=== PATIENT | female | born 1985 | race Hispanic/Latino ===

== ENCOUNTER 2019-01-31 14:11 | Emergency (ER) | payer OTHER, SELFPAY ==
[2019-01-31 14:15] VITALS: BP 91/60; PULSE 82; RESP 16; TEMP 37; O2SAT 95; BMI 34.5
--- NOTE | 2019-01-31 14:15 | DI.RAD.S_ITS ---
PROCEDURE: XR ANKLE LT MIN 3V INDICATIONS: twisting injury TECHNIQUE: 3 views of the ankle were acquired. COMPARISON: None. FINDINGS: Bones: External radiopaque densities may represent clothing or other structures, which could potentially obscure a very subtle fracture. No displaced fractures or dislocations of the foot or hind foot are evident. No suspicious osseous lesions are identified. The ankle mortise appears to be well-maintained. Soft tissues: No obvious tibiotalar joint effusion. There may be medial ankle soft tissue swelling. IMPRESSION: Limited left ankle x-rays related to overlying material that may obscure a fracture. No displaced fracture is evident. If there is high clinical concern for an acute fracture, please consider repeating the x-ray without material or objects overlying the patient. Dictated by: Ke Tabor M.D. on 01/31/2019 at 13:54 Approved by: Ke Tabor M.D. on 01/31/2019 at 13:57
--- NOTE | 2019-01-31 14:34 | DI.RAD.S_ITS ---
PROCEDURE: XR CLAVICLE RT INDICATIONS: Clavicle px after all on R shoulder. TECHNIQUE: 2 views of the clavicle were acquired. COMPARISON: None. FINDINGS: Bones: No fractures or dislocations. No suspicious bony lesions. Mild to moderate degenerative changes of the right acromioclavicular joint are present. Soft tissues: No suspicious soft tissue calcifications. IMPRESSION: No clavicle fractures. Dictated by: Ke Tabor M.D. on 01/31/2019 at 14:23 Approved by: Ke Tabor M.D. on 01/31/2019 at 14:24
--- NOTE | 2019-01-31 14:36 | ED.LOWEXIN ---
HPI - Extremity Injury (Lower) <MODESTO Kirkland - Last Filed: 01/31/19 15:46> General Chief Complaint: Extremity Injury, Lower Stated Complaint: Left ankle pain Time Seen by Provider: 01/31/19 14:12 Source: patient and family Mode of arrival: wheelchair Limitations: no limitations History of Present Illness HPI Narrative: 33-year-old healthy female presents emergency department today after taking a fall while playing softball. [place] [employer] [place] when her left ankle was inverted and she fell on her right shoulder. Patient states she remembers falling and then remembers waking up in pain, she is unsure if she passed out. Witnesses stated that she fell and stared at the lenin for 1-2 seconds before she started crying. Patient complains of 10/10 aching pain to her left ankle that is worse with movement. Also complains of a 3 /10 right-sided dull aching headache. Additionally complains of an 8/10 sharp pain to right clavicle area that is worse with palpation and elevation of right arm. Patient denies vision changes, neck pain, nausea, vomiting, chest pain, shortness of breath, patient was unable to walk after incident due to ankle pain. Patient denies any significant orthopedic you for entrusting me with your care today. As discussed, injuries to her left leg, other than partial tear to left quad last year. Related Data Home Medications Medication Instructions Recorded Confirmed Vitamins (PRENAVITE) 1 tab PO QDAY #0 07/21/16 metformin [Glucophage XR] 500 mg PO QDAY #0 07/21/16 omega 6-ewh-xfw-fish oil [Fish Oil] 1,000 mg PO Q DAY #0 12/05/16 Previous Rx's Medication Instructions Recorded medroxyprogesterone 10 mg PO QDAY 10 Days #0 tab 11/11/16 Allergies Allergy/AdvReac Type Severity Reaction Status Date / Time No Known Drug Allergies Allergy Verified 01/31/19 14:37 Review of Systems <MODESTO Kirkland - Last Filed: 01/31/19 15:46> Review of Systems REVIEW OF SYSTEMS: GENERAL: Denies fever or chills. HENT: See HPI, complaints of trauma, no hearing loss or vision change. EYES: No loss of vision, double vision, eye pain, or irritation. CARDIOVASCULAR: No chest pain, syncope uncertain. See HPI. RESPIRATORY: No shortness of breath or cough. GASTROINTESTINAL: No nausea, vomiting, diarrhea, or constipation. GENITOURINARY: No flank pain or dysuria. MUSCULOSKELETAL: Complains of left ankle pain and right shoulder pain, see HPI. INTEGUMENTARY: No rash, lesions, or pruritus. NEURO: No numbness, tingling, memory loss, or confusion. PSYCH: No behavior or mood changes. PFSH <MODESTO Kirkland - Last Filed: 01/31/19 15:46> Medical History No significant medical problems (Acute) Social History (Updated 01/31/19 @ 14:50 by MODESTO Kirkland) Smoking Status: Never smoker Social History Smoking Status: Never smoker Exam <MODESTO Kirkland - Last Filed: 01/31/19 15:46> Initial Vital Signs Initial Vital Signs: Vital Signs Temperature 98.6 F 01/31/19 14:15 Pulse Rate 82 01/31/19 14:15 Respiratory Rate 16 01/31/19 14:15 Blood Pressure 91/60 01/31/19 14:15 Pulse Oximetry 95 01/31/19 14:15 PHYSICAL EXAMINATION: GENERAL: Well groomed, alert, and cooperative. Answers questions promptly and appropriately. Vital signs noted. Patient arrives in [place] from EMS. HENT: Normocephalic, atraumatic, no bruising or lacerations on the face or scalp. Oral mucosa is pink and moist. EYES: PERRLA, EOMIs, conjunctiva pink, sclera white, no periorbital swelling. NECK: Full range of motion. No cervical spinal tenderness. Slight tenderness to right paraspinal muscle. CARDIOVASCULAR: S1 and S2 sounds normal. Regular rate and rhythm, no murmurs, clicks, or bruits. No pedal edema. RESPIRATORY: Normal respiratory rate, trachea midline, airway patent. No stridor, nasal flaring or accessory muscle use. Lungs are clear in all he without wheeze, rhonchi, or crackles. MUSCULOSKELETAL: Patient arrived ambulatory, did not ambulate due to pain. Equal tone and mass bilaterally. EXTREMITIES: Swelling and slight bruising to left ankle more significant around lateral malleolus, significant tenderness to medial malleolus. Limited range of motion to left ankle due to pain. Full range of motion to left foot phalanges, no tenderness with palpation of left metatarsals, no tenderness to palpation of proximal tibia or fibula or knee joint, pedal pulses intact bilaterally, 2+. No lacerations noted. Significant tenderness to right clavicle with palpation, clavicle tenderness with extension of right arm and rotation of neck to the right, radial pulse was intact bilaterally, 2+. Shooter'S Helper strength equal bilaterally. CMS intact. SKIN: Warm, dry, soft, appropriate color for ethnicity. No lesions, rashes, or wounds. NEURO: Alert and Oriented X 3. Good coordination. No ataxia, or sensory deficits, or cognitive issues. PSYCH: Appropriate affect and mood. <Susan Andrade DO - Last Filed: 02/03/19 07:24> Initial Vital Signs Initial Vital Signs: Vital Signs Temperature 98.6 F 01/31/19 14:15 Pulse Rate 82 01/31/19 14:15 Respiratory Rate 16 01/31/19 14:15 Blood Pressure 91/60 01/31/19 14:15 Pulse Oximetry 95 01/31/19 14:15 Course <MODESTO Kirkland - Last Filed: 01/31/19 15:46> Orders Ordered: Discontinued Medications Ibuprofen (Advil) 800 mg PO NOW ONE Stop: 01/31/19 14:37 Last Admin: 01/31/19 14:46 Dose: 800 mg Reevaluation(s) Reevaluation #1: Patient re-evaluated after pain medication, states she is feeling a lot better. Reevaluation #2: Patient was able to ambulate ankle without the use of crutches. Consultations Consultation #1: Patient staffed with Dr. Andrade. Vital Signs - 8 hr 01/31/19 14:15 Temperature 98.6 F Pulse Rate 82 Respiratory Rate 16 Blood Pressure 91/60 Pulse Oximetry 95 <Susan Andrade DO - Last Filed: 02/03/19 07:24> Orders Ordered: Discontinued Medications Ibuprofen (Advil) 800 mg PO NOW ONE Stop: 01/31/19 14:37 Last Admin: 01/31/19 14:46 Dose: 800 mg Vital Signs - 8 hr 01/31/19 14:15 Temperature 98.6 F Pulse Rate 82 Respiratory Rate 16 Blood Pressure 91/60 Pulse Oximetry 95 MDM - Extremity Injury (Lower) <MODESTO Kirkland - Last Filed: 01/31/19 15:46> Medical Records Attestation: I reviewed the patient's medical records. Lab Data Attestation: I reviewed the patient's lab results. Imaging Data R Clavicle : Radiologist's impression: [address] [address] XRay Report Signed Patient: Lauren Oliveira GMR#: [id number] : 1985Acct:[id number] Age/Sex: 33 / FDate of Service: 01/31/19 Loc: ED Accession Number: [id number] Procedure: XR clavicle RT Ordering Provider: Lilian Hood PROCEDURE: XR CLAVICLE RT INDICATIONS: Clavicle px after all on R shoulder. TECHNIQUE: 2 views of the clavicle were acquired. COMPARISON: None. FINDINGS: Bones: No fractures or dislocations. No suspicious bony lesions. Mild to moderate degenerative changes of the right acromioclavicular joint are present. Soft tissues: No suspicious soft tissue calcifications. IMPRESSION: No clavicle fractures. Dictated by: Ke Tabor M.D. on 01/31/2019 at 14:23 Approved by: Ke Tabor M.D. on 01/31/2019 at 14:24 L Ankle: Radiologist's impression: [address] [address] XRay Report Signed Patient: Lauren Oliveira GMR#: [id number] : 1985Acct:[id number] Age/Sex: 33 / FDate of Service: 01/31/19 Loc: ED Accession Number: [id number] Procedure: XR ankle LT min 3V Ordering Provider: Lilian Hood PROCEDURE: XR ANKLE LT MIN 3V INDICATIONS: twisting injury TECHNIQUE: 3 views of the ankle were acquired. COMPARISON: None. FINDINGS: Bones: External radiopaque densities may represent clothing or other structures, which could potentially obscure a very subtle fracture. No displaced fractures or dislocations of the foot or hind foot are evident. No suspicious osseous lesions are identified. The ankle mortise appears to be well-maintained. Soft tissues: No obvious tibiotalar joint effusion. There may be medial ankle soft tissue swelling. IMPRESSION: Limited left ankle x-rays related to overlying material that may obscure a fracture. No displaced fracture is evident. If there is high clinical concern for an acute fracture, please consider repeating the x-ray without material or objects overlying the patient. Dictated by: Ke Tabor M.D. on 01/31/2019 at 13:54 Approved by: Ke Tabor M.D. on 01/31/2019 at 13:57 [facility] Narrative Medical decision making narrative: Low suspicion of fracture due to negative x-ray, and patient's ability to ambulate after pain medication was given. I do not suspect intracranial bleed or need for head CT as LOC unclear, patient denies vomiting, no signs of trauma to head, the patient remained awake and alert throughout the entire stay, and she does not have significant risk factors such as taking blood thinners. Although due to headache and mechanism of injury she may have a small concussion, a CT would not change the plan of care. Significant discussion was had with patient about signs of worsening concussion and when to return to the emergency department record. Discharge Plan Departure Patient Disposition: Home Clinical Impression: Ankle sprain Qualifiers: Encounter type: initial encounter Involved ligament of ankle: unspecified ligament Laterality: left Qualified Code(s): S93.402A - Sprain of unspecified ligament of left ankle, initial encounter Discharge Date/Time: 01/31/19 15:51 Interventions: ED Discharge Assessment Last Done: 01/31/19 15:51 Instructions: DI for Ankle Sprain, DI for Shoulder Sprain Activity Restrictions/Additional Instructions: Thank you for entrusting me with your care today. As discussed, you're x-rays are negative for any fracture. I suspect that your injuries are from sprains and strains that occurred during your fall. However, I advise that you follow up with your primary care provider in about a week for recheck if your symptoms have not improved. Wrap your ankle with an Devon wrap for the next 3 days, take 600 mg of ibuprofen every 6 hours around the clock for the next 3 days to help with inflammation and pain. Return to the emergency department if you experience syncope, chest pain, shortness of breath, uncontrolled vomiting, or fevers that do not decrease with Tylenol or ibuprofen. Prescriptions: No Action metformin [Glucophage XR] 500 MG tablet extended release 24 hr 500 mg PO QDAY Qty: 0 RF: 0 Vitamins (PRENAVITE) 1 tab PO QDAY Qty: 0 RF: 0 medroxyprogesterone 10 MG tablet 10 mg PO QDAY 10 Days Qty: 0 RF: 0 omega 0-wvs-lyk-fish oil [Fish Oil] 1,000 MG capsule 1,000 mg PO Q DAY Qty: 0 RF: 0 <Susan Andrade, - Last Filed: 02/03/19 07:24> Cosign ED Attending Cosignature Attestation: I was immediately available in the department for consultation. Documentation has been reviewed. I agree with assessment and plan.
--- NOTE | 2019-01-31 14:39 | ED_ITS ---
HPI - Extremity Injury (Lower) <MODESTO Kirkland - Last Filed: 01/31/19 15:46> General Chief Complaint: Extremity Injury, Lower Stated Complaint: Left ankle pain Time Seen by Provider: 01/31/19 14:12 Source: patient and family Mode of arrival: wheelchair Limitations: no limitations History of Present Illness HPI Narrative: 33-year-old healthy female presents emergency department today after taking a fall while playing softball. She was running [place] [employer] [place] when her left ankle was inverted and she fell on her right shoulder. Patient states she remembers falling and then remembers waking up in pain, she is unsure if she passed out. Witnesses stated that she fell and stared at the lenin for 1-2 seconds before she started crying. Patient complains of 10/10 aching pain to her left ankle that is worse with movement. Also complains of a 3 /10 right-sided dull aching headache. Additionally complains of an 8/10 sharp pain to right clavicle area that is worse with palpation and elevation of right arm. Patient denies vision changes, neck pain, nausea, vomiting, chest pain, shortness of breath, patient was unable to walk after incident due to ankle pain. Patient denies any significant orthopedic you for entrusting me with your care today. As discussed, injuries to her left leg, other than partial tear to left quad last year. Related Data Home Medications Medication Instructions Recorded Confirmed Vitamins (PRENAVITE) 1 tab PO QDAY #0 07/21/16 metformin [Glucophage XR] 500 mg PO QDAY #0 07/21/16 omega 8-gex-whj-fish oil [Fish Oil] 1,000 mg PO Q DAY #0 12/05/16 Previous Rx's Medication Instructions Recorded medroxyprogesterone 10 mg PO QDAY 10 Days #0 tab 11/11/16 Allergies Allergy/AdvReac Type Severity Reaction Status Date / Time No Known Drug Allergies Allergy Verified 01/31/19 14:37 Review of Systems <MODESTO Kirkland - Last Filed: 01/31/19 15:46> Review of Systems REVIEW OF SYSTEMS: GENERAL: Denies fever or chills. HENT: See HPI, complaints of trauma, no hearing loss or vision change. EYES: No loss of vision, double vision, eye pain, or irritation. CARDIOVASCULAR: No chest pain, syncope uncertain. See HPI. RESPIRATORY: No shortness of breath or cough. GASTROINTESTINAL: No nausea, vomiting, diarrhea, or constipation. GENITOURINARY: No flank pain or dysuria. MUSCULOSKELETAL: Complains of left ankle pain and right shoulder pain, see HPI. INTEGUMENTARY: No rash, lesions, or pruritus. NEURO: No numbness, tingling, memory loss, or confusion. PSYCH: No behavior or mood changes. PFSH <MODESTO Kirkland - Last Filed: 01/31/19 15:46> Medical History No significant medical problems (Acute) Social History (Updated 01/31/19 @ 14:50 by MODESTO Kirkland) Smoking Status: Never smoker Social History Smoking Status: Never smoker Exam <MODESTO Kirkland - Last Filed: 01/31/19 15:46> Initial Vital Signs Initial Vital Signs: Vital Signs Temperature 98.6 F 01/31/19 14:15 Pulse Rate 82 01/31/19 14:15 Respiratory Rate 16 01/31/19 14:15 Blood Pressure 91/60 01/31/19 14:15 Pulse Oximetry 95 01/31/19 14:15 PHYSICAL EXAMINATION: GENERAL: Well groomed, alert, and cooperative. Answers questions promptly and appropriately. Vital signs noted. Patient arrives in [place] from EMS. HENT: Normocephalic, atraumatic, no bruising or lacerations on the face or scalp. Oral mucosa is pink and moist. EYES: PERRLA, EOMIs, conjunctiva pink, sclera white, no periorbital swelling. NECK: Full range of motion. No cervical spinal tenderness. Slight tenderness to right paraspinal muscle. CARDIOVASCULAR: S1 and S2 sounds normal. Regular rate and rhythm, no murmurs, clicks, or bruits. No pedal edema. RESPIRATORY: Normal respiratory rate, trachea midline, airway patent. No stridor, nasal flaring or accessory muscle use. Lungs are clear in all he without wheeze, rhonchi, or crackles. MUSCULOSKELETAL: Patient arrived ambulatory, did not ambulate due to pain. Equal tone and mass bilaterally. EXTREMITIES: Swelling and slight bruising to left ankle more significant around lateral malleolus, significant tenderness to medial malleolus. Limited range of motion to left ankle due to pain. Full range of motion to left foot phalanges, no tenderness with palpation of left metatarsals, no tenderness to palpation of proximal tibia or fibula or knee joint, pedal pulses intact bilaterally, 2+. No lacerations noted. Significant tenderness to right clavicle with palpation, clavicle tenderness with extension of right arm and rotation of neck to the right, radial pulse was intact bilaterally, 2+. Supervisor Offset Plate Preparation strength equal bilaterally. CMS intact. SKIN: Warm, dry, soft, appropriate color for ethnicity. No lesions, rashes, or wounds. NEURO: Alert and Oriented X 3. Good coordination. No ataxia, or sensory deficits, or cognitive issues. PSYCH: Appropriate affect and mood. <Susan Andrade DO - Last Filed: 02/03/19 07:24> Initial Vital Signs Initial Vital Signs: Vital Signs Temperature 98.6 F 01/31/19 14:15 Pulse Rate 82 01/31/19 14:15 Respiratory Rate 16 01/31/19 14:15 Blood Pressure 91/60 01/31/19 14:15 Pulse Oximetry 95 01/31/19 14:15 Course <MODESTO Kirkland - Last Filed: 01/31/19 15:46> Orders Ordered: Discontinued Medications Ibuprofen (Advil) 800 mg PO NOW ONE Stop: 01/31/19 14:37 Last Admin: 01/31/19 14:46 Dose: 800 mg Reevaluation(s) Reevaluation #1: Patient re-evaluated after pain medication, states she is feeling a lot better. Reevaluation #2: Patient was able to ambulate ankle without the use of crutches. Consultations Consultation #1: Patient staffed with Dr. Andrade. Vital Signs - 8 hr 01/31/19 14:15 Temperature 98.6 F Pulse Rate 82 Respiratory Rate 16 Blood Pressure 91/60 Pulse Oximetry 95 <Susan Andrade DO - Last Filed: 02/03/19 07:24> Orders Ordered: Discontinued Medications Ibuprofen (Advil) 800 mg PO NOW ONE Stop: 01/31/19 14:37 Last Admin: 01/31/19 14:46 Dose: 800 mg Vital Signs - 8 hr 01/31/19 14:15 Temperature 98.6 F Pulse Rate 82 Respiratory Rate 16 Blood Pressure 91/60 Pulse Oximetry 95 MDM - Extremity Injury (Lower) <MODESTO Kirkland - Last Filed: 01/31/19 15:46> Medical Records Attestation: I reviewed the patient's medical records. Lab Data Attestation: I reviewed the patient's lab results. Imaging Data R Clavicle : Radiologist's impression: [address] [address] XRay Report Signed Patient: Lauren Oliveira GMR#: [id number] : 1985Acct:[id number] Age/Sex: 33 / FDate of Service: 01/31/19 Loc: ED Accession Number: [id number] Procedure: XR clavicle RT Ordering Provider: Lilian Hood PROCEDURE: XR CLAVICLE RT INDICATIONS: Clavicle px after all on R shoulder. TECHNIQUE: 2 views of the clavicle were acquired. COMPARISON: None. FINDINGS: Bones: No fractures or dislocations. No suspicious bony lesions. Mild to moderate degenerative changes of the right acromioclavicular joint are present. Soft tissues: No suspicious soft tissue calcifications. IMPRESSION: No clavicle fractures. Dictated by: Ke Tabor M.D. on 01/31/2019 at 14:23 Approved by: Ke Tabor M.D. on 01/31/2019 at 14:24 L Ankle: Radiologist's impression: [address] [address] XRay Report Signed Patient: Lauren Oliveira GMR#: [id number] : 1985Acct:[id number] Age/Sex: 33 / FDate of Service: 01/31/19 Loc: ED Accession Number: [id number] Procedure: XR ankle LT min 3V Ordering Provider: Lilian Hood PROCEDURE: XR ANKLE LT MIN 3V INDICATIONS: twisting injury TECHNIQUE: 3 views of the ankle were acquired. COMPARISON: None. FINDINGS: Bones: External radiopaque densities may represent clothing or other structures, which could potentially obscure a very subtle fracture. No displaced fractures or dislocations of the foot or hind foot are evident. No suspicious osseous lesions are identified. The ankle mortise appears to be well-maintained. Soft tissues: No obvious tibiotalar joint effusion. There may be medial ankle soft tissue swelling. IMPRESSION: Limited left ankle x-rays related to overlying material that may obscure a fracture. No displaced fracture is evident. If there is high clinical concern for an acute fracture, please consider repeating the x-ray without material or objects overlying the patient. Dictated by: Ke Tabor M.D. on 01/31/2019 at 13:54 Approved by: Ke Tabor M.D. on 01/31/2019 at 13:57 [facility] Narrative Medical decision making narrative: Low suspicion of fracture due to negative x- ray, and patient's ability to ambulate after pain medication was given. I do not suspect intracranial bleed or need for head CT as LOC unclear, patient denies vomiting, no signs of trauma to head, the patient remained awake and alert throughout the entire stay, and she does not have significant risk factors such as taking blood thinners. Although due to headache and mechanism of injury she may have a small concussion, a CT would not change the plan of care. Significant discussion was had with patient about signs of worsening concussion and when to return to the emergency department record. Discharge Plan Departure Patient Disposition: Home Clinical Impression: Ankle sprain Qualifiers: Encounter type: initial encounter Involved ligament of ankle: unspecified ligament Laterality: left Qualified Code(s): S93.402A - Sprain of unspecified ligament of left ankle, initial encounter Discharge Date/Time: 01/31/19 15:51 Interventions: ED Discharge Assessment Last Done: 01/31/19 15:51 Instructions: DI for Ankle Sprain, DI for Shoulder Sprain Activity Restrictions/Additional Instructions: Thank you for entrusting me with your care today. As discussed, you're x-rays are negative for any fracture. I suspect that your injuries are from sprains and strains that occurred during your fall. However, I advise that you follow up with your primary care provider in about a week for recheck if your symptoms have not improved. Wrap your ankle with an Devon wrap for the next 3 days, take 600 mg of ibuprofen every 6 hours around the clock for the next 3 days to help with inflammation and pain. Return to the emergency department if you experience syncope, chest pain, shortness of breath, uncontrolled vomiting, or fevers that do not decrease with Tylenol or ibuprofen. Prescriptions: No Action metformin [Glucophage XR] 500 MG tablet extended release 24 hr 500 mg PO QDAY Qty: 0 RF: 0 Vitamins (PRENAVITE) 1 tab PO QDAY Qty: 0 RF: 0 medroxyprogesterone 10 MG tablet 10 mg PO QDAY 10 Days Qty: 0 RF: 0 omega 3-zfb-mws-fish oil [Fish Oil] 1,000 MG capsule 1,000 mg PO Q DAY Qty: 0 RF: 0 <Susan Andrade, - Last Filed: 02/03/19 07:24> Cosign ED Attending Cosignature Attestation: I was immediately available in the department for consultation. Documentation has been reviewed. I agree with assessment and plan.
[2019-01-31] MEDS: IBUPROFEN 400 MG TABLET 800 MG PO (14:46)
[2019-01-31 15:51] VITALS: BP 103/71; O2SAT 100
[2019-01-31 15:55] VITALS: BP 103/71; PULSE 73; RESP 20; O2SAT 97
== END 2019-01-31 15:51 | disposition home or self-care (01) ==
PROVIDERS: Emergency Provider Nurse Practitioner
DX: S93.402A Sprain of unspecified ligament of left ankle, initial encounter (principal); W18.39XA Other fall on same level, initial encounter; Y93.64 Activity, baseball
CPT/HCPCS: 73000; 73610; 99282; 99283

== ENCOUNTER 2019-06-20 15:37 | Emergency (ER) | payer OTHER, SELFPAY ==
[2019-06-20 16:07] VITALS: BP 125/75; PULSE 70; RESP 16; TEMP 36.9; O2SAT 100
[2019-06-20] MEDS: diphenhydrAMINE 50 MG/ML VIAL IM (17:01)
[2019-06-20] MEDS: KETOROLAC 10 MG TABLET PO (17:34)
--- NOTE | 2019-06-20 18:07 | ED.ALLEREA ---
HPI - Allergic Reaction <SEAN eHadBC - Last Filed: 06/20/19 19:53> General Chief complaint: Allergic Reaction Stated complaint: Rash, Allergic Reaction, Swollen Tongue Time Seen by Provider: 06/20/19 16:11 Source: patient Mode of arrival: Ambulatory Limitations: no limitations History of Present Illness HPI narrative: The patient is a 34-year-old female nonsmoker with history of finger felon who presents with a chief complaint of allergic reaction. The patient states that she has had a rash on her abdomen for the past several weeks, then today noticed swelling of her lower lip and tingling of her tongue. She did not take anything at home to feel better. She denies any new medications, new exposures to foods or substances. She does not take any blood pressure medications particularly radha inhibitors. She denies any chest pain, shortness of breath, swelling of her tongue difficulty breathing abdominal pain nausea vomiting diarrhea etc Related Data Home Medications Medication Instructions Recorded Confirmed Vitamins (PRENAVITE) 1 tab PO QDAY #0 07/21/16 metformin [Glucophage XR] 500 mg PO QDAY #0 07/21/16 omega 1-lxv-uno-fish oil [Fish Oil] 1,000 mg PO Q DAY #0 12/05/16 Previous Rx's Medication Instructions Recorded medroxyprogesterone 10 mg PO QDAY 10 Days #0 tab 11/11/16 prednisone 50 mg PO DAILY #5 tab 06/20/19 Allergies Allergy/AdvReac Type Severity Reaction Status Date / Time No Known Drug Allergies Allergy Verified 01/31/19 14:37 Review of Systems <ABHISHEK Head - Last Filed: 06/20/19 19:53> Review of Systems Narrative: GENERAL: Denies chills, fatigue, malaise, fever, sweats. HEENT: See HPI RESPIRATORY: See HPI CARDIOVASCULAR: Denies chest pain, palpitations, orthopnea, edema, GASTROINTESTINAL: Denies nausea, vomiting, abdominal pain, diarrhea, constipation, melena. : Denies dysuria, frequency, incontinence, hematuria, urinary retention. MUSCULOSKELETAL: denies weakness, joint pain, or bony pain SKIN: Denies rash, skin lesions, or other NEUROLOGIC: Denies weakness, headache, numbness, change in speech, confusion, seizures, incoordination. PSYCHIATRIC: No concerning psychosocial issues. 12 point review of systems is negative except for those stated above Patient History <Adriana Sharma [employer] HELPER-BC - Last Filed: 06/20/19 19:53> Social History Smoking Status: Never smoker Exam <Adriana SharmaTOM-BC - Last Filed: 06/20/19 19:53> Narrative Exam Narrative: GENERAL: This is a well-nourished, well-developed patient, in no acute distress HEAD: Atraumatic. Normocephalic. No temporal or scalp tenderness. EYES: Pupils equal round and reactive. Extraocular motions intact. No scleral icterus. No injection or drainage. ENT: Nose without bleeding, purulent drainage or septal hematoma. Throat without erythema, tonsillar hypertrophy or exudate. Uvula midline. Airway patent. Very slight swelling bilateral lower lip. No swelling of tongue. No swelling in oropharynx. NECK: Trachea midline. No JVD or lymphadenopathy. Supple, nontender, no meningeal signs. CARDIOVASCULAR: Regular rate and rhythm without murmurs, gallops, or rubs. RESPIRATORY: Clear to auscultation. Breath sounds equal bilaterally. No wheezes, rales, or rhonchi. No cough. No increased respiratory effort. No stridor. No accessory muscle use. GASTROINTESTINAL: Abdomen soft, non-tender, nondistended. No hepato-splenomegaly, or palpable masses. No guarding. EXTREMITIES: No clubbing, cyanosis, or edema. No joint tenderness, effusion, or edema noted. BACK: Nontender without deformity or crepitance. No flank tenderness. NEURO: AOx3. SKIN: Slight papular rash noted across abdomen beneath right leg. Multiple scratch hernandez noted across rash. Initial Vital Signs Initial Vital Signs: Vital Signs Temperature 98.5 F 06/20/19 16:07 Pulse Rate 70 06/20/19 16:07 Respiratory Rate 16 06/20/19 16:07 Blood Pressure 125/75 06/20/19 16:07 Pulse Oximetry 100 06/20/19 16:07 <Glynn Carmen DO - Last Filed: 06/21/19 18:05> Initial Vital Signs Initial Vital Signs: Vital Signs Temperature 98.5 F 06/20/19 16:07 Pulse Rate 70 06/20/19 16:07 Respiratory Rate 16 06/20/19 16:07 Blood Pressure 125/75 06/20/19 16:07 Pulse Oximetry 100 06/20/19 16:07 Course <ABHISHEK Head - Last Filed: 06/20/19 19:53> Orders Ordered: Discontinued Medications Diphenhydramine HCl (Benadryl) 50 mg IM NOW ONE Stop: 06/20/19 16:29 Last Admin: 06/20/19 17:01 Dose: 50 mg Documented by: NINI Ketorolac Tromethamine (Toradol) 10 mg PO NOW ONE Stop: 06/20/19 17:19 Last Admin: 06/20/19 17:34 Dose: 10 mg Documented by: STEPHANIE Methylprednisolone (Solu-Medrol) 40 mg INJ NOW ONE Stop: 06/20/19 16:29 Last Admin: 06/20/19 17:01 Dose: 40 mg Documented by: NINI Vital Signs Vital signs: Vital Signs - 8 hr 06/20/19 16:07 06/20/19 18:34 Temperature 98.5 F Pulse Rate 70 84 Respiratory Rate 16 18 Blood Pressure 125/75 108/64 Pulse Oximetry 100 100 <Glynn Carmen DO - Last Filed: 06/21/19 18:05> Orders Ordered: Discontinued Medications Diphenhydramine HCl (Benadryl) 50 mg IM NOW ONE Stop: 06/20/19 16:29 Last Admin: 06/20/19 17:01 Dose: 50 mg Documented by: NINI Ketorolac Tromethamine (Toradol) 10 mg PO NOW ONE Stop: 06/20/19 17:19 Last Admin: 06/20/19 17:34 Dose: 10 mg Documented by: ESTEVANT Methylprednisolone (Solu-Medrol) 40 mg INJ NOW ONE Stop: 06/20/19 16:29 Last Admin: 06/20/19 17:01 Dose: 40 mg Documented by: NINI Vital Signs Vital signs: Vital Signs - 8 hr 06/20/19 16:07 06/20/19 18:34 Temperature 98.5 F Pulse Rate 70 84 Respiratory Rate 16 18 Blood Pressure 125/75 108/64 Pulse Oximetry 100 100 MDM - Allergic Reaction <ABHISHEK Head - Last Filed: 06/20/19 19:53> MDM Narrative Medical decision making narrative: The patient is a 34-year-old female who presents to emergency department with a chief complaint of a possible allergic reaction. She has no signs of anaphylaxis, no hives, no respiratory distress. I did give her Solu-Medrol and Benadryl IM which decrease the swelling of her lower lip. She is hemodynamically stable throughout her stay in the emergency department. I did place her on a burst of steroids. I discussed that this would increase her blood sugars. I encouraged use of Pepcid and Benadryl as needed. Encourage PCP follow-up in the next few days. Discussed coming back to the emergency department for any acute concerns such as chest pain, shortness of breath, or any acute concerns. The patient and her have no questions or concerns upon discharge and state understanding of return precautions as well as follow-up care Discharge Plan Departure Patient Disposition: Home Clinical Impression: Allergic reaction Qualifiers: Encounter type: initial encounter Qualified Code(s): T78.40XA - Allergy, unspecified, initial encounter Discharge Date/Time: 06/20/19 18:36 Instructions: DI for General Allergic Reactions, DI for Adverse Drug Reaction -- Allergic Activity Restrictions/Additional Instructions: Please follow up with primary care provider in the next few days. Please start her prednisone tomorrow. Take this once a day for 5 days. You can also use Benadryl and Pepcid as needed Please come back to the emergency department for any acute concerns such as chest pain, shortness of breath, difficulty breathing swollen lips face or tongue etc Prescriptions: New prednisone 50 mg tablet 50 mg PO DAILY Qty: 5 RF: 0 No Action metformin [Glucophage XR] 500 MG tablet extended release 24 hr 500 mg PO QDAY Qty: 0 RF: 0 Vitamins (PRENAVITE) 1 tab PO QDAY Qty: 0 RF: 0 medroxyprogesterone 10 MG tablet 10 mg PO QDAY 10 Days Qty: 0 RF: 0 omega 1-chg-cdj-fish oil [Fish Oil] 1,000 MG capsule 1,000 mg PO Q DAY Qty: 0 RF: 0 Referrals: Moises Dinh [Primary Care Provider] -
[2019-06-20 18:34] VITALS: BP 108/64; PULSE 84; RESP 18; O2SAT 100
== END 2019-06-20 18:36 | disposition home or self-care (01) ==
PROVIDERS: Emergency Provider Nurse Practitioner Family; PCP Family Medicine
DX: T78.40XA Allergy, unspecified, initial encounter (principal)
CPT/HCPCS: 96372; 96374; 99282; 99283; J1200; J2920